=== PATIENT | female | born 1975 | race Two or more races ===

== ENCOUNTER 2024-01-18 20:16 | Emergency (ER) | payer MEDICAID, OTHER ==
[~2024-01-18] VITALS: Ht 162.6 cm; Wt 113.0 kg
[2024-01-18 20:40] VITALS: BP 168/63; PULSE 68; RESP 18; O2SAT 98
[2024-01-18] MEDS ORDERED: AMOX875T4 PO (21:14)
[2024-01-18] MEDS ORDERED: IBUP-1456 PO (21:14)
[2024-01-18] MEDS: BENZOCAINE (DENTAL) 20 % SPRAY 60ML MT ONE (21:24)
== END 2024-01-18 21:26 | disposition home or self-care (01) ==
LOC: ER 20:16
DX: K04.7 Periapical abscess without sinus (principal)